=== PATIENT | male | born 1945 | race Caucasian/White ===

== ENCOUNTER 2022-09-11 15:33 | Outpatient (REF) | payer MEDICARE, SELFPAY ==
[2022-09-11 16:35] LABS: Abs Immature Grans 0.02 10^3/uL (0.0-0.06); Absolute Basophil Count 0.04 10^3/uL (0.0-0.2); Absolute Eosinophil Count 0.22 10^3/uL (0.0-0.7); Absolute Lymphocyte Count 0.69 10^3/uL (1.2-3.4); Eosinophils % 5.5; HCT 39.3 % (40.0-50.0); Immature Grans % 0.5; Lymphocytes % 17.4; MCH 25.8 pg (27.0-33.0); MCHC 30.5 % (32.0-36.0); MCV 85 fL (80-95); MPV 9.8 fL (8.0-11.0); Monocytes % 12.6; Platelet Count 271 10^3/uL (130-400); RBC 4.65 10^6/uL (4.36-5.78); RDW 16.7 % (11.8-14.1); RDW-SD 51.7 fL; WBC 3.97 10^3/uL (4.4-10.8)
[2022-09-11 17:10] LABS: Hemoglobin A1C 5.7 % (<5.7)
[2022-09-11 17:37] LABS: ALT 31 U/L (16-63); AST 33 U/L (15-37); Albumin 3.4 g/dL (3.4-5.0); Alkaline Phosphatase 126 U/L (46-116); Anion Gap 5.9 mmol/L (3-11); BUN 22 mg/dL (7-18); Bilirubin, Total 0.6 mg/dL (0.2-1.0); CO2 28.1 mmol/L (21.0-32.0); Calcium 8.8 mg/dL (8.5-10.1); Calculated LDL 102 mg/dL (<100); Chloride 106 mmol/L (98-107); Cholesterol 165 mg/dL (<200); Estimated GFR 77.52 (mL/min/1.73m2); Glucose 87 mg/dL (74-106); HDL Cholesterol 51 mg/dL (40-60); Potassium 4.8 mmol/L (3.5-5.1); Sodium 140 mmol/L (136-145); TSH (W/Ref FT4) 0.72 uIU/mL (0.36-3.74); Triglyceride 61 mg/dL (<150)
== END 2022-09-11 15:34 | disposition home or self-care (01) ==
LOC: NCHCN 15:33
PROVIDERS: Visit Provider Family Medicine
DX: Z13.29 Encounter for screening for other suspected endocrine disorder (principal); R42 Dizziness and giddiness; R73.03 Prediabetes; Z86.39 Personal history of other endocrine, nutritional and metabolic disease
CPT/HCPCS: 80053; 80061; 83036; 84443; 85025

== ENCOUNTER 2022-09-18 09:47 | Outpatient (REF) | payer MEDICARE, SELFPAY ==
--- OUTSIDE RECORDS SUMMARY | 2022-09-18 09:49 | XMS_ITS | CCD ---
Author Name Unknown Address [address] [place] [address] [phone] Organization Unknown Address [address] [place] [address] [phone] Care Team Providers Care Batch Unit Treater Name Role Phone LISA RODRIGUES MD Attending Physician [phone] STEPHANIE DOUGLAS MD Er Physician [phone] STEPHANIE DOUGLAS MD Rounding (Secondary) Physician [phone] Vital Signs Vital Sign Value Unit Date/Time Recent/Initial ? BMI (Body Mass Index) 25.24 kg/m^2 09/28/2020 00: 44 Initial VS Weight Measured 181 lbs 09/28/2020 00:44 Ini tial VS Height 71 in 09/28/2020 00:44 Initial VS BSA (Body Surface Area) 2.03 m^2 09/28/2020 0 0:44 Initial VS BP Systolic 126 mmHg 09/28/2020 00:44 Initial VS BP Diastolic 80 mmHg 09/28/2020 00:44 Initia l VS Respiratory Rate 18 bpm 09/28/2020 00:44 In itial VS Heart Rate 77 bpm 09/28/2020 00:44 Initial VS O2 % BldC Oximetry 97 % 09/28/2020 00:44 Initial VS Body Temperature 36.5 degrees 09/28/2020 00:44 In itial VS BP Systolic 104 mmHg 09/28/2020 07:26 Most Re cent VS BP Diastolic 60 mmHg 09/28/2020 07:26 Most R ecent VS Respiratory Rate 18 bpm 09/28/2020 07:[address] Recent VS Heart Rate 66 bpm 09/28/2020 07:26 Most Rec ent VS O2 % BldC Oximetry 94 % 09/28/2020 07:26 Most Recent VS Body Temperature 36.4 degrees 09/28/2020 07:[address] Recent VS Allergies Allergy Code Allergy Type Reaction Status No Known Drug Allergies 0 No known drug allergies Active Procedures Unknown or Not Available. History of Immunizations Unknown or Not Available. Problems Problem Code Start Date Resolved Date Status Syncope 136221925 Active Dehydration 80528691 Active Results BASIC METABOLIC PANEL (BMP) - Collect Date/Time: 09/28/2020 06:20 Test Name Code Test Result Test Units Test Ref Rang e GLUCOSE 2345-7 88 mg/dL L=70 H=116 BUN 3094-0 23 mg/dL L=6 H=25 CREATININE 2160-0 1.09 mg/dL L=0.67 H=1.17 SODIUM SERUM 2951-2 140 mmol/L L=136 H=145 POTASSIUM SERUM 2823-3 4.5 mmol/L L=3.4 H=5 .2 CHLORIDE SERUM 2075-0 108 mmol/L L=96 H=110 CARBON DIOXIDE (CO2) 2028-9 28 mmol/L L=22 H=34 ANION GAP 91033-9 3.7 mmol/L CALCIUM SERUM 55604-8 7.8 mg/dL L=8.2 H=10. 2 AGE 75 years eGFR (non-Afr.Amer.) 55667-3 66 mL/min eGFR (Afr-Cymro) 45581-8 80 mL/min COMPREHENSIVE METABOLIC PANE L (CMP) - Collect Date/Time: 09/27/2020 21:30 Test Name Code Test Result Test Units Test Ref Rang e GLUCOSE 2345-7 105 mg/dL L=70 H=116 BUN 3094-0 30 mg/dL L=6 H=25 CREATININE 2160-0 1.54 mg/dL L=0.67 H=1.17 SODIUM SERUM 2951-2 138 mmol/L L=136 H=145 POTASSIUM SERUM 2823-3 3.6 mmol/L L=3.4 H=5 .2 CHLORIDE SERUM 2075-0 104 mmol/L L=96 H=110 CARBON DIOXIDE (CO2) 2027-9 22 mmol/L L=22 H=34 ANION GAP 10515-2 12.3 mmol/L CALCIUM SERUM 20318-3 8.7 mg/dL L=8.2 H=10. 2 BILIRUBIN TOTAL 1975-2 0.4 mg/dL L=0.0 H=1 .3 ALK. PHOS. 6768-6 114 U/L L=46 H=116 SGOT (AST) 1920-8 22 U/L L=15 H=37 SGPT (ALT) 1742-6 28 U/L L=12 H=78 TOTAL PROTEIN 2885-2 7.0 gm/dL L=6.0 H=8.0 ALBUMIN 1751-7 3.9 gm/dL L=3.4 H=5.0 AGE 75 years eGFR (non-Afr.Amer.) 50720-1 44 mL/min eGFR (Afr-Cymro) 24616-7 54 mL/min TROPONIN-I ADM. - Collect Da te/Time: 09/27/2020 21:30 Test Name Code Test Result Test Units Test Ref Rang e TROPONIN-I 84168-0 <0.017 ng/mL L=0.000 H=0.06 0 CBC W/ DIFFERENTIAL - [facility] t Date/Time: 09/27/2020 21:30 Test Name Code Test Result Test Units Test Ref Rang e WBC 6690-2 4.98 th/cmm L=5.00 H=10.00 NEUT % 61.9 % L=40.0 H=80.0 LYMPH % 19.1 % L=10.0 H=50.0 MONO % 95480-5 12.2 % L=2.0 H=12.0 EOS % 5.6 % L=0.0 H=8.0 BASO % 0.8 % L=0.0 H=3.0 IG % 2514-8 0.4 % L=0.0 H=1.1 NRBC % 77135-5 0.0 % L=0.0 H=0.0 NEUT abs count 751-8 3.1 th/cmm L=1.6 H=8. 4 LYMPH abs count 731-0 1.0 th/cmm L=1.5 H=4 .0 MONO abs count 742-7 0.6 th/cmm L=0.2 H=1. 0 EOS abs count 711-2 0.3 th/cmm L=0.0 H=0.5 BASO abs count 704-7 0.0 th/cmm L=0.0 H=0. 2 IG abs count 84397-0 0.0 th/cmm L=0.0 H=0.1 NRBC abs count 59000-4 0.0 mil/cmm L=0.0 H=0. 0 RBC 789-8 4.24 mil/cmm L=4.30 H=6.20 HEMOGLOBIN 718-7 13.1 gm/dL L=13.0 H=17.0 HEMATOCRIT 4544-3 40 % L=45 H=52 MCV 787-2 94 fL L=82 H=92 MCH 785-6 30.9 pg L=27.0 H=31.0 MCHC 786-4 32.8 % L=32.0 H=36.0 RDW-SD 788-0 49.0 fL L=39.0 H=49.0 PLATELET COUNT 777-3 263 th/cmm L=150 H=45 0 NATHALY ROWESILKE MICHELEAARONX - Colle ct Date/Time: 09/27/2020 23:00 Test Name Code Test Result Test Units Test Ref Rang e SOURCE= Anterior nasal N/A Tier- INPATIENT/ED N/A SARS COV2 RNA: 10410-0 NEGATIVE N/A REFERENCE RANGE: NEGAT Active Medications Medications Administered During Visit Medication Dose Units Frequency Route Date/Time of Last Dose SODIUM CHLORIDE 0.9% 1000ML IV CONT 09/28/2020 08:15 ATORVASTATIN TABLET: 10MG 5 MG DAILY PO 09/28/2020 08:15 Encounters Encounter Diagnosis Diagnosis Code Start Date Syncope and collapse R55 09/27/2020 Social History Smoking Status Code Start Date End Date Never smoker [id number] Patient Decision Aids Patient Decision Aid Bradycardia Dehydration Discharge Instructions You were admitted to [place] [address] on 09/27/2020 23:36 with a principal diagnosis of Syncope and collapse You had the following tests done:BASIC METABOLIC PANEL (BMP)[facility]CBC W/ DIFFERENTIALCOMPREHENSIVE METABOLIC PANEL (CMP)TROPONIN-I ADM. You were discharged from [place] [address] on 09/28/2020 10:40 Should you have any questions prior to discharge, please contact a member of your healthcare team. If you have left the hospital and have any questions, please contact your primary care physician. Chief Complaint and Reason For Visit Chief Complaint Date of Onset SYNCOPE Function Status Unknown or Not Available. Plan of Care Unknown or Not Available. Referral/Transition of Care Unknown or Not Available.
--- OUTSIDE RECORDS SUMMARY | 2022-09-18 09:49 | XMS_ITS | CCD ---
Author Name Unknown Address [address] [place] [address] [phone] Organization Unknown Address [address] [place] [address] [phone] Care Team Providers Care Motorman/Woman Name Role Phone RADHA REYES Attending Physician [phone] MADISON MOON Er Physician [phone] MASON Cline Registered Nurse [phone] Vital Signs Vital Sign Value Unit Date/Time Recent/Initial ? BMI (Body Mass Index) 22.18 kg/m^2 12/02/2021 11: 10 Initial VS Weight Measured 159 lbs 12/02/2021 11:10 Ini tial VS Height 71 in 12/02/2021 11:10 Initial VS BSA (Body Surface Area) 1.9 m^2 12/02/2021 1 1:10 Initial VS BP Systolic 131 mmHg 12/02/2021 11:10 Initial VS BP Diastolic 65 mmHg 12/02/2021 11:10 Initia l VS Respiratory Rate 17 bpm 12/02/2021 11:10 In itial VS Heart Rate 71 bpm 12/02/2021 11:10 Initial VS O2 % BldC Oximetry 97 % 12/02/2021 11:10 Initial VS Body Temperature 36.8 degrees 12/02/2021 11:10 In itial VS BP Systolic 126 mmHg 12/02/2021 12:20 Most Re cent VS BP Diastolic 66 mmHg 12/02/2021 12:20 Most R ecent VS Respiratory Rate 16 bpm 12/02/2021 12:[address] Recent VS Heart Rate 70 bpm 12/02/2021 12:20 Most Rec ent VS O2 % BldC Oximetry 97 % 12/02/2021 12:20 Most Recent VS Body Temperature 36.7 degrees 12/02/2021 12:[address] Recent VS Allergies Allergy Code Allergy Type Reaction Status No Known Drug Allergies 0 No known drug allergies Active Procedures Unknown or Not Available. History of Immunizations Unknown or Not Available. Problems Problem Code Start Date Resolved Date Status Syncope 390170849 Active Dehydration 39105906 Active Results Unknown or Not Available. Active Medications Medication Code Dose Units Frequency Route Modificatio n Start Date/Time Atorvastatin Calcium 10MG Oral Tablet 832956 5 MILLIGRAMS DAILY ORAL 021 10:17 Prescription Detail TAKE 5 MILLIGRAMS ORAL DAILY Minocycline 100MG Oral Capsule 93092315860 100 MILLIGRAMS DAILY ORAL 021 10:17 Prescription Detail TAKE 100 MILLIGRAMS ORAL DAILY Medications Administered During Visit Unknown or Not Available. Encounters Encounter Diagnosis Diagnosis Code Start Date Other specified disorders of right ear H938X1 12/02/2021 Social History Smoking Status Code Start Date End Date Never smoker [id number] Patient Decision Aids Unknown or Not Available. Discharge Instructions You were admitted to [facility] on 12/02/2021 11:06 with a principal diagnosis of Other specified disorders of right ear You were discharged from [facility] on 12/02/2021 12:30 Should you have any questions prior to discharge, please contact a member of your healthcare team. If you have left the hospital and have any questions, please contact your primary care physician. Chief Complaint and Reason For Visit Chief Complaint Date of Onset BUMP ON EAR Function Status Unknown or Not Available. Plan of Care Unknown or Not Available. Referral/Transition of Care Unknown or Not Available.
--- OUTSIDE RECORDS SUMMARY | 2022-09-18 09:49 | XMS_ITS | CCD ---
Author Name Unknown Address [address] [place] [address] [phone] Organization Unknown Address [address] [place] [address] [phone] Care Team Providers Care Health Services Information Specialist Name Role Phone CLIFTON ZAMARRIPA, DANIELE Lindsey Attending Physician [phone] Vital Signs Unknown or Not Available. Allergies Allergy Code Allergy Type Reaction Status No Known Drug Allergies 0 No known drug allergies Active Procedures Unknown or Not Available. History of Immunizations Unknown or Not Available. Problems Problem Code Start Date Resolved Date Status Syncope 107450364 Active Dehydration 63473975 Active Results Unknown or Not Available. Active Medications Medication Code Dose Units Frequency Route Modificatio n Start Date/Time Atorvastatin Calcium 10MG Oral Tablet 570549 5 MILLIGRAMS DAILY ORAL 021 10:17 Prescription Detail TAKE 5 MILLIGRAMS ORAL DAILY Minocycline 100MG Oral Capsule 69153201005 100 MILLIGRAMS DAILY ORAL 021 10:17 Prescription Detail TAKE 100 MILLIGRAMS ORAL DAILY Medications Administered During Visit Unknown or Not Available. Encounters Encounter Diagnosis Diagnosis Code Start Date Syncope and collapse R55 11/06/2020 Social History Smoking Status Code Start Date End Date Never smoker 607013682 Patient Decision Aids Unknown or Not Available. Discharge Instructions You were admitted to [facility] on 11/06/2020 13:45 with a principal diagnosis of Syncope and collapse You were discharged from [facility] on 11/06/2020 13:45 Should you have any questions prior to discharge, please contact a member of your healthcare team. If you have left the hospital and have any questions, please contact your primary care physician. Chief Complaint and Reason For Visit Unknown or Not Available. Function Status Unknown or Not Available. Plan of Care Unknown or Not Available. Referral/Transition of Care Unknown or Not Available.
--- OUTSIDE RECORDS SUMMARY | 2022-09-18 09:49 | XMS_ITS | CCD ---
Author Name Unknown Address [address] [place] [address] [phone] Organization Unknown Address [address] [place] [address] [phone] Care Team Providers Care Welder First Class Name Role Phone CHARLENE SANTIAGO Attending Physician [phone] CHARLENE SANTIAGO (Secondary) Ph ysician [phone] Vital Signs Unknown or Not Available. Allergies Allergy Code Allergy Type Reaction Status No Known Drug Allergies 0 No known drug allergies Active Procedures Unknown or Not Available. History of Immunizations Unknown or Not Available. Problems Problem Code Start Date Resolved Date Status Syncope 514858085 Active Dehydration 04534171 Active Results NATHALY CAMEJO* - Neda ect Date/Time: 12/10/2021 07:25 Test Name Code Test Result Test Units Test Ref Rang e Tier- 36930-0 R N/A SARS COV2 RNA: 30853-5 NEGATIVE N/A REFERENCE RANGE: NEGAT Active Medications Medication Code Dose Units Frequency Route Modificatio n Start Date/Time Atorvastatin Calcium 10MG Oral Tablet 047663 5 MILLIGRAMS DAILY ORAL 021 10:17 Prescription Detail TAKE 5 MILLIGRAMS ORAL DAILY Minocycline 100MG Oral Capsule 60312268545 100 MILLIGRAMS DAILY ORAL 021 10:17 Prescription Detail TAKE 100 MILLIGRAMS ORAL DAILY Medications Administered During Visit Unknown or Not Available. Encounters Encounter Diagnosis Diagnosis Code Start Date Neoplasm of uncertain behavior of skin 01804253 12/09/2021 Social History Smoking Status Code Start Date End Date Never smoker 070009816 Patient Decision Aids Unknown or Not Available. Discharge Instructions You were admitted to [facility] on 12/09/2021 09:38 with a principal diagnosis of Neoplasm of uncertain behavior of skin You had the following tests done:NATHALY DIAZ RHEONIX* You were discharged from [facility] on 12/09/2021 00:00 Should you have any questions prior to [...]
--- OUTSIDE RECORDS SUMMARY | 2022-09-18 09:49 | XMS_ITS | CCD ---
Author Name Unknown Address [address] [place] [address] [phone] Organization Unknown Address [address] [place] [address] [phone] Care Team Providers Care Drapery Cutter Machine Name Role Phone CHARLENE SANTIAGO Attending Physician [phone] Vital Signs Vital Sign Value Unit Date/Time Recent/Initial ? BP Systolic 121 mmHg 12/11/2021 17:25 Initial VS BP Diastolic 83 mmHg 12/11/2021 17:25 Initia l VS Respiratory Rate 14 bpm 12/11/2021 17:25 In itial VS Heart Rate 68 bpm 12/11/2021 17:25 Initial VS O2 % BldC Oximetry 95 % 12/11/2021 17:25 Initial VS Body Temperature 36.2 degrees 12/11/2021 17:25 In itial VS Allergies Allergy Code Allergy Type Reaction Status No Known Drug Allergies 0 No known drug allergies Active Procedures Procedure Code Procedure Type Date Excision Malignant Lesion F/E/E/N/L 1.1-2.0 cm 96227 CPT 12/11/2021 Anesthesia, Head, Neck, Post Trunk Integumentary, Muscles/Nerves 59801 CPT 12/11/2021 History of Immunizations Unknown or Not Available. Problems Problem Code Start Date Resolved Date Status Syncope 973875033 Active Dehydration 89385544 Active Results HEMOGLOBIN AND HEMATOCRIT* - Collect Date/Time: 12/11/2021 13:34 Test Name Code Test Result Test Units Test Ref Rang e HEMOGLOBIN 718-7 11.9 gm/dL L=13.0 H=17.0 HEMATOCRIT 4544-3 39 % L=45 H=52 TISSUE SURGICAL PATHOLOGY (C ONSULT)* - Collect Date/Time: 12/12/2021 13:56 Test Name Code Test Result Test Units Test Ref Rang e Report (See below) N/A Active Medications Medications Administered During Visit Medication Dose Units Frequency Route Date/Time of Last Dose CeFAZolin IVPB FROZEN PREMIX : 2GM/100ML 2 GM X1 12/11/2021 14:1 5 PREGABALIN CAPSULE: 50MG 100 MG X1 PO 12/11/2021 14:02 ACETAMINOPHEN TABLET: 325MG 975 MG X1 PO 12/11/2021 14:01 LACTATED RINGERS 1000ML 1000 ML X1 12/11/2021 14:05 MIDAZOLAM INJ SDV: 2MG/2ML 2 MG X1 IVP 12/11/2021 14:04 Encounters Encounter Diagnosis Diagnosis Code Start Date 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 Discharge Instructions You were admitted to 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 on 12/11/2021 18:06 Should you have any questions prior to [...]
--- OUTSIDE RECORDS SUMMARY | 2022-09-18 09:49 | XMS_ITS | CCD ---
Author Name Unknown Address [address] [place] [address] [phone] Organization Unknown Address [address] [place] [address] [phone] Care Team Providers Care Street Sweeper Name Role Phone CHARLENE SANTIAGO Attending Physician [phone] CHARLENE SANTIAGO (Secondary) Ph ysician [phone] Vital Signs Unknown or Not Available. Allergies Allergy Code Allergy Type Reaction Status No Known Drug Allergies 0 No known drug allergies Active Procedures Unknown or Not Available. History of Immunizations Unknown or Not Available. Problems Problem Code Start Date Resolved Date Status Syncope 900608613 Active Dehydration 64013742 Active Results Unknown or Not Available. Active Medications Medication Code Dose Units Frequency Route Modificatio n Start Date/Time Atorvastatin Calcium 10MG Oral Tablet 323590 5 MILLIGRAMS DAILY ORAL 021 10:17 Prescription Detail TAKE 5 MILLIGRAMS ORAL DAILY Minocycline 100MG Oral Capsule 19298119503 100 MILLIGRAMS DAILY ORAL 021 10:17 Prescription Detail TAKE 100 MILLIGRAMS ORAL DAILY Medications Administered During Visit Unknown or Not Available. Encounters Encounter Diagnosis Diagnosis Code Start Date Follow-up visit [id number] 01/05/2022 Social History Smoking Status Code Start Date End Date Never smoker 565854960 Patient Decision Aids Unknown or Not Available. Discharge Instructions You were admitted to [facility] on 01/05/2022 11:34 with a principal diagnosis of Encounter for follow-up examination after completed treatment for malignant neoplasm You were discharged from [facility] on 01/05/2022 00:00 Should you have any questions prior [...]
[2022-09-18 14:44] LABS: Iron 51 ug/dL (65-175); Total Iron Binding Capacity 387 ug/dL (250-450); Transferrin Sat 13 % (20-55)
[2022-09-18 15:10] LABS: Ferritin 17 ng/mL (26-388); Folate 14.4 ng/mL (8.6-20.0); Vitamin B12 272 pg/mL (193-986)
== END 2022-09-18 09:48 | disposition home or self-care (01) ==
LOC: NCHCN 09:47
PROVIDERS: PCP Family Medicine; Visit Provider Family Medicine
DX: D64.9 Anemia, unspecified (principal); M12.841 Other specific arthropathies, not elsewhere classified, right hand; M12.842 Other specific arthropathies, not elsewhere classified, left hand; E78.2 Mixed hyperlipidemia; R63.4 Abnormal weight loss; Z86.39 Personal history of other endocrine, nutritional and metabolic disease
CPT/HCPCS: 82607; 82728; 82746; 83540; 83550

== ENCOUNTER 2023-04-01 15:24 | Outpatient (REF) | payer MEDICARE, SELFPAY ==
[2023-04-01 21:25] LABS: Abs Immature Grans 0.01 10^3/uL (0.0-0.06); Absolute Basophil Count 0.04 10^3/uL (0.0-0.2); Absolute Eosinophil Count 0.16 10^3/uL (0.0-0.7); Absolute Lymphocyte Count 0.87 10^3/uL (1.2-3.4); Absolute Monocyte Count 0.54 10^3/uL (0.1-0.8); Absolute Neutrophil Count 3.74 10^3/uL (1.2-6.7); Basophils % 0.7; HCT 44.7 % (40.0-50.0); Immature Grans % 0.2; Lymphocytes % 16.2; MCH 31.6 pg (27.0-33.0); MCHC 33.6 % (32.0-36.0); MCV 94 fL (80-95); Monocytes % 10.1; Neutrophils % 69.8; Platelet Count 178 10^3/uL (130-400); RBC 4.75 10^6/uL (4.36-5.78); RDW 13.4 % (11.8-14.1); RDW-SD 46.3 fL; WBC 5.36 10^3/uL (4.4-10.8)
[2023-04-01 21:51] LABS: ALT 25 U/L (16-63); AST 22 U/L (15-37); Albumin 3.7 g/dL (3.4-5.0); Alkaline Phosphatase 125 U/L (46-116); Anion Gap 10.4 mmol/L (3-11); BUN 22 mg/dL (7-18); Bilirubin, Total 0.6 mg/dL (0.2-1.0); CO2 24.6 mmol/L (21.0-32.0); CREATININE 1.1 mg/dL (0.70-1.30); Chloride 106 mmol/L (98-107); Estimated GFR 69.14 (mL/min/1.73m2); Glucose 123 mg/dL (74-106); Potassium 3.8 mmol/L (3.5-5.1); Sodium 141 mmol/L (136-145); Total Protein 6.9 g/dL (6.4-8.2)
[2023-04-02 18:27] LABS: PSA, Diagnostic 4.3 ng/mL (<=6.5)
[2023-04-06 15:07] LABS: Testosterone, Total 395 ng/dL (240-950)
== END 2023-04-01 15:25 | disposition home or self-care (01) ==
LOC: NCHCN 15:24
PROVIDERS: PCP Family Medicine; Visit Provider Family Medicine
DX: C61 Malignant neoplasm of prostate (principal)
CPT/HCPCS: 80053; 84403; 84153; 85025

== ENCOUNTER 2023-09-28 16:05 | Outpatient (REF) | payer MEDICARE, SELFPAY ==
[2023-09-28 17:54] LABS: Iron 121 ug/dL (65-175); Total Iron Binding Capacity 331 ug/dL (250-450); Transferrin Sat 37 % (20-55)
[2023-09-28 17:57] LABS: Ferritin 92 ng/mL (26-388); Folate 12.6 ng/mL (8.6-20.0); Vitamin B12 273 pg/mL (193-986)
== END 2023-09-28 16:06 | disposition home or self-care (01) ==
LOC: NCHCN 16:05
PROVIDERS: PCP Family Medicine; Visit Provider Family Medicine
DX: D53.9 Nutritional anemia, unspecified (principal)
CPT/HCPCS: 82607; 82728; 82746; 83540; 83550

== ENCOUNTER → 2024-07-04 14:37 | Outpatient (BNVA) | payer MEDICARE, SELFPAY | PROVIDERS: PCP Family Medicine; Referring Provider Family Medicine; Visit Provider Psychiatry & Neurology Neurology | DX: G62.9 Polyneuropathy, unspecified (principal); R01.1 Cardiac murmur, unspecified | CPT/HCPCS: 99205; G2212 ==

== ENCOUNTER → 2024-08-08 14:18 | Outpatient (BNVA) | payer MEDICARE, SELFPAY | PROVIDERS: PCP Family Medicine; Referring Provider Family Medicine; Visit Provider Psychiatry & Neurology Neurology | DX: G62.9 Polyneuropathy, unspecified (principal); E53.8 Deficiency of other specified B group vitamins; R73.03 Prediabetes | CPT/HCPCS: 99214; 95908 ==